=== PATIENT | male | born 1980 ===

== ENCOUNTER 2018-07-17 19:31 | Emergency (ER) | payer MEDICAID ==
[2018-07-17 19:42] VITALS: BP 137/104
[2018-07-17] MEDS ORDERED: IBUPROFEN 600 MG TAB PO ONE (19:44)
[2018-07-17] MEDS ORDERED: HYDROCODONE/APAP 5/325 TAB PO ONE (19:44)
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
== END 2018-07-17 20:26 | disposition home or self-care (01) ==
LOC: CED 19:31
DX: S49.91XA Unspecified injury of right shoulder and upper arm, initial encounter (principal); V13.9XXA Unspecified pedal cyclist injured in collision with car, pick-up truck or van in traffic accident, initial encounter; Y93.55 Activity, bike riding; Y92.410 Unspecified street and highway as the place of occurrence of the external cause; Y99.9 Unspecified external cause status
CPT/HCPCS: 73030-PO